=== PATIENT | male | born 1950 | race Caucasian/White ===

== ENCOUNTER 2023-07-31 08:51 | Inpatient (IN) | payer OTHER ==
[~2023-07-31] VITALS: Ht 157.5 cm; Wt 72.6 kg
[2023-07-31 09:04] VITALS: BP_SYST 137; PULSE 81; RESP 22; TEMP 98.3; O2SAT 98
[2023-07-31 09:39] LABS: BASOPHILS % (AUTO) 0.3 % (0.0-2.0); EOSINOPHILS % (AUTO) 0.3 % (0.0-4.0); HEMATOCRIT 37.3 % (36-54); HEMOGLOBIN 11.9 g/dL (14.0-18.0); LYMPHOCYTES # (AUTO) 3.6 K/uL (1.0-5.5); MEAN CORPUSCULAR HEMOGLOBIN 28 pg (27-31); MEAN CORPUSCULAR HGB CONC 32 % (32-36); MEAN CORPUSCULAR VOLUME 86 fL (79.0-98.0); MONOCYTES # (AUTO) 0.7 K/uL (0.0-1.0); MONOCYTES % (AUTO) 5.8 % (1.7-9.3); NEUTROPHILS # (AUTO) 8.1 K/uL (1.8-7.7); NEUTROPHILS % (AUTO) 64.6 % (40.0-70.0); PLATELET COUNT (AUTO) 233 K/uL (130-430); RED BLOOD CELL COUNT(AUTO) 4.34 MIL/uL (4.2-6.2); RED CELL DISTRIBUTION WIDTH 14.9 % (9.0-15.0); WHITE BLOOD COUNT (AUTO) 12.5 K/uL (4.8-10.8)
[2023-07-31 10:12] LABS: BILIRUBIN,URINE 1+ (NEGATIVE); BLOOD, URINE 3+ (NEGATIVE); CLARITY/URINE CLOUDY (CLEAR); COLOR,URINE YELLOW (YELLOW); GLUCOSE,URINE 1+ (NEGATIVE); KETONES,URINE TRACE (NEGATIVE); LEUKOCYTE ESTERASE ,URINE 1+ (NEGATIVE); NITRITE, URINE NEGATIVE (NEGATIVE); PROTEIN URINE 3+ (NEGATIVE)
[2023-07-31 10:27] LABS: ANION GAP 6 (5-15); CALCIUM 9.4 mg/dL (8.4-11.0); CARBON DIOXIDE 36 mmol/L (23-29); CHLORIDE 96 mmol/L (98-107); CREATININE 2.38 mg/dL (0.55-1.30); GLUCOSE 308 mg/dL (74-106); POTASSIUM 3.9 mmol/L (3.5-5.1); SODIUM SERUM 138 mmol/L (136-145); UREA NITROGEN, BLOOD 45 mg/dL (8-21)
[2023-07-31 10:45] LABS: BACTERIA,URINE MANY /HPF (None Seen); HYALINE CASTS, URINE 0-10 /LPF (None Seen); RBC,URINE 20-50 /HPF (0-3); WBC,URINE 20-50 /HPF (0-3)
[2023-07-31 10:46] LABS: ALANINE AMINOTRANSFERASE 26 U/L (12-78); ALBUMIN 3.4 g/dL (3.4-4.8); ASPARTATE AMINOTRANSFERASE 11 U/L (10-37); BILIRUBIN,DIRECT 0.2 mg/dL (0.0-0.3); LIPASE 18 U/L (16-77); TOTAL PROTEIN, SERUM 8.1 g/dL (6.4-8.3)
[2023-07-31] MEDS ORDERED: ASPIRIN 325 MG TABLET PO ONE (11:30)
[2023-07-31] MEDS ORDERED: HEPARIN SODIUM,PORCINE 5,000 UNITS/ML VIAL IVP ONE (11:45)
[2023-07-31] MEDS ORDERED: METO50TA16 PO (11:51)
[2023-07-31] MEDS ORDERED: TAMS0.4C96 PO (11:51)
[2023-07-31] MEDS ORDERED: METF-379 PO (11:51)
[2023-07-31] MEDS ORDERED: AMLO10TA88 PO (11:51)
[2023-07-31 11:59] LABS: INR 1.1 (0.80-1.20); PROTHROMBIN TIME 10.9 SECS (9.5-12.5)
[2023-07-31] MEDS ORDERED: NACL 0.9% 1,000 ML IV ONE (12:00)
[2023-07-31] MEDS ORDERED: *HEPARIN PER PHARMACY XX PRN (13:00)
[2023-07-31] MEDS ORDERED: 0.45% NACL 1,000 ML IV ONE (13:00)
[2023-07-31] MEDS ORDERED: cefTRIAXone 1 GM VIAL IM ONE (13:00)
[2023-07-31] MEDS ORDERED: HEPARIN SODIUM,PORCINE 2000 UNITS/0.4 ML BOLUS IVP PRN (14:45)
[2023-07-31] MEDS ORDERED: HEPARIN SODIUM,PORCINE 3000 UNITS/0.6 ML BOLUS IVP PRN (14:45)
[2023-07-31] MEDS ORDERED: CEFTRIAXONE SOD 1 GM/ D5W 50 ML IV ONE ×2 (15:00)
[2023-07-31] MEDS ORDERED: cefTRIAXone 1 GM VIAL ONE (16:23)
[2023-07-31] MEDS ORDERED: ONDANSETRON HCL 4 MG/2 ML VIAL IVP PRN (21:30)
[2023-07-31] MEDS ORDERED: DEXTROSE 50% JECT 50 ML DISP.SYRIN IVP PRN (21:30)
[2023-07-31] MEDS ORDERED: ACETAMINOPHEN 325 MG TABLET PO PRN (21:30)
[2023-07-31] MEDS ORDERED: 0.45% NS 500 ML IV ONE (21:45)
[2023-07-31 22:41] VITALS: BP_SYST 165; PULSE 52; RESP 16; TEMP 99.2; O2SAT 97
[2023-08-01] VITALS: BP_SYST 165; PULSE 88; RESP 16; TEMP 99; O2SAT 97
[2023-08-01] MEDS ORDERED: PIPERACILLIN/TAZOBACTAM 2.25 GM VIAL IV ONE (00:05)
[2023-08-01] MEDS ORDERED: amLODIPine BESYLATE 5 MG TABLET PO ONE (00:30)
[2023-08-01] MEDS: PIPERACILLIN/TAZO 2.25G/DEX-IS 50 ML IV SCH ×4 (00:32→17:14)
[2023-08-01] MEDS: hydrALAZINE HCL 20 MG/ML VIAL IVP PRN (00:47)
[2023-08-01] MEDS: HEPARIN 25,000 UNITS in 250 ML PREMIX IV PRN ×2 (01:11→09:51)
[2023-08-01 04:08] LABS: BARBITURATE, URINE NEGATIVE (NEG <=200); URINE AMPHETAMINE NEGATIVE (NEG <=500)
[2023-08-01 04:09] LABS: BENZODIAZEPINE, URINE NEGATIVE (NEG <=150); CANNABINOID, URINE NEGATIVE (NEG <=50); COCAINE, URINE NEGATIVE (NEG <=150); METHAMPHETAMINES SCREEN,URINE NEGATIVE (NEG <=500); OPIATE, URINE NEGATIVE (NEG <=100); PHENCYCLIDINE SCREEN,URINE NEGATIVE (NEG <=25); URINE METHADONE NEGATIVE (NEG <=200); URINE OXYCODONE SCREEN NEGATIVE (NEG <=100)
[2023-08-01 04:10] LABS: UR TRICYCLIC ANTIDEPRESSANTS NEGATIVE (NEG <=300)
[2023-08-01 04:15] LABS: BASOPHILS # (AUTO) 0.1 K/uL (0.0-0.2); BASOPHILS % (AUTO) 0.8 % (0.0-2.0); EOSINOPHILS % (AUTO) 9.3 % (0.0-4.0); HEMOGLOBIN 10.6 g/dL (14.0-18.0); LYMPHOCYTES # (AUTO) 5.6 K/uL (1.0-5.5); LYMPHOCYTES % (AUTO) 49.9 % (20.5-51.5); MEAN CORPUSCULAR HEMOGLOBIN 27 pg (27-31); MEAN CORPUSCULAR HGB CONC 31 % (32-36); MEAN CORPUSCULAR VOLUME 85 fL (79.0-98.0); MONOCYTES # (AUTO) 0.4 K/uL (0.0-1.0); MONOCYTES % (AUTO) 3.9 % (1.7-9.3); NEUTROPHILS % (AUTO) 36.1 % (40.0-70.0); PLATELET COUNT (AUTO) 182 K/uL (130-430); RED BLOOD CELL COUNT(AUTO) 3.99 MIL/uL (4.2-6.2); RED CELL DISTRIBUTION WIDTH 14.9 % (9.0-15.0); WHITE BLOOD COUNT (AUTO) 11.2 K/uL (4.8-10.8)
[2023-08-01 05:08] LABS: ALANINE AMINOTRANSFERASE 20 U/L (12-78); ALBUMIN 2.7 g/dL (3.4-4.8); ANION GAP 3 (5-15); ASPARTATE AMINOTRANSFERASE 13 U/L (10-37); CALCIUM 8.4 mg/dL (8.4-11.0); CARBON DIOXIDE 32 mmol/L (23-29); CHLORIDE 99 mmol/L (98-107); CREATININE 1.58 mg/dL (0.55-1.30); GLUCOSE 203 mg/dL (74-106); POTASSIUM 3.7 mmol/L (3.5-5.1); SODIUM SERUM 134 mmol/L (136-145); TOTAL PROTEIN, SERUM 6.7 g/dL (6.4-8.3); UREA NITROGEN, BLOOD 39 mg/dL (8-21)
[2023-08-01 08:00] VITALS: BP_SYST 122; PULSE 91; RESP 20; TEMP 97.8; O2SAT 98
[2023-08-01] MEDS ORDERED: ASPIRIN 81 MG TABLET(ECOTRIN) PO SCH (09:00)
[2023-08-01 09:27] LABS: CHOLESTEROL 180 mg/dL (<200); HDL CHOLESTEROL 60 mg/dL (>45); TRIGLYCERIDES 70 mg/dL (30-150)
[2023-08-01] MEDS: ASPIRIN 81 MG TABLET(ECOTRIN) PO SCH (09:38)
[2023-08-01] MEDS: ATORVASTATIN 20 MG TABLET PO SCH (09:39)
[2023-08-01] MEDS: amLODIPine BESYLATE 5 MG TABLET PO SCH (09:39)
[2023-08-01] MEDS ORDERED: MULTIVITS,CA,MINERALS/IRON/FA 1 TABLET PO ONE (11:30)
[2023-08-01] MEDS: INSULIN REGULAR, HUMAN 100 UNITS/ML, 3 ML VIAL (humuLIN R) SUBCUT PRN ×3 (11:38→21:26)
[2023-08-01 12:06] VITALS: BP_SYST 133; PULSE 89; RESP 18; TEMP 98.2; O2SAT 98
[2023-08-01 16:30] VITALS: BP_SYST 128; PULSE 90; RESP 19; TEMP 98; O2SAT 97
[2023-08-01 20:00] VITALS: BP_SYST 137; PULSE 56; RESP 18; TEMP 97.9; O2SAT 99
[2023-08-02] VITALS (7 sets, daily range): BP systolic 125–142; PULSE 57–72; RESP 17–20; TEMP 98–98.3; O2SAT 98–100
[2023-08-02] MEDS: PIPERACILLIN/TAZO 2.25G/DEX-IS 50 ML IV SCH ×5 (00:04→23:31)
[2023-08-02] MEDS: HEPARIN 25,000 UNITS in 250 ML PREMIX IV PRN (05:39)
[2023-08-02 07:02] LABS: BASOPHILS % (AUTO) 0.2 % (0.0-2.0); EOSINOPHILS # (AUTO) 0.9 K/uL (0.0-0.4); EOSINOPHILS % (AUTO) 9.6 % (0.0-4.0); HEMATOCRIT 29.6 % (36-54); HEMOGLOBIN 9.5 g/dL (14.0-18.0); LYMPHOCYTES % (AUTO) 55.8 % (20.5-51.5); MEAN CORPUSCULAR HEMOGLOBIN 28 pg (27-31); MEAN CORPUSCULAR HGB CONC 32 % (32-36); MEAN CORPUSCULAR VOLUME 86 fL (79.0-98.0); MONOCYTES # (AUTO) 0.4 K/uL (0.0-1.0); MONOCYTES % (AUTO) 4.5 % (1.7-9.3); NEUTROPHILS # (AUTO) 2.7 K/uL (1.8-7.7); NEUTROPHILS % (AUTO) 29.9 % (40.0-70.0); PLATELET COUNT (AUTO) 160 K/uL (130-430); RED BLOOD CELL COUNT(AUTO) 3.46 MIL/uL (4.2-6.2); RED CELL DISTRIBUTION WIDTH 14.8 % (9.0-15.0); WHITE BLOOD COUNT (AUTO) 8.9 K/uL (4.8-10.8)
[2023-08-02 07:13] LABS: ALANINE AMINOTRANSFERASE 17 U/L (12-78); ALBUMIN 2.3 g/dL (3.4-4.8); ANION GAP 5 (5-15); ASPARTATE AMINOTRANSFERASE 12 U/L (10-37); CALCIUM 7.8 mg/dL (8.4-11.0); CARBON DIOXIDE 30 mmol/L (23-29); CHLORIDE 100 mmol/L (98-107); CREATININE 1.27 mg/dL (0.55-1.30); GLUCOSE 187 mg/dL (74-106); POTASSIUM 3.6 mmol/L (3.5-5.1); SODIUM SERUM 135 mmol/L (136-145); TOTAL BILIRUBIN 0.8 mg/dL (0.0-1.0); TOTAL PROTEIN, SERUM 5.9 g/dL (6.4-8.3); UREA NITROGEN, BLOOD 30 mg/dL (8-21)
[2023-08-02] MEDS: ASPIRIN 81 MG TABLET(ECOTRIN) PO SCH (09:49)
[2023-08-02] MEDS: ATORVASTATIN 20 MG TABLET PO SCH (09:49)
[2023-08-02] MEDS: MULTIVITS,CA,MINERALS/IRON/FA 1 TABLET PO SCH (09:51)
[2023-08-02 11:40] LABS: TOTAL IRON BIND. CAPACITY 153 ug/dL (250-450)
[2023-08-02] MEDS: amLODIPine BESYLATE 5 MG TABLET PO SCH (15:11)
[2023-08-02] MEDS: INSULIN REGULAR, HUMAN 100 UNITS/ML, 3 ML VIAL (humuLIN R) SUBCUT PRN (20:58)
[2023-08-03 00:41] VITALS: BP_SYST 144; PULSE 70; RESP 18; TEMP 98; O2SAT 100
[2023-08-03] MEDS ORDERED: cefTRIAXone 1 GM VIAL ONE (02:49)
[2023-08-03] MEDS: cefTRIAXone 1 GM in D5W 50 ML IV SCH (02:56)
[2023-08-03 04:51] LABS: HEMATOCRIT 26.1 % (36-54); HEMOGLOBIN 8.3 g/dL (14.0-18.0); MEAN CORPUSCULAR HEMOGLOBIN 27 pg (27-31); MEAN CORPUSCULAR HGB CONC 32 % (32-36); MEAN CORPUSCULAR VOLUME 86 fL (79.0-98.0); PLATELET COUNT (AUTO) 159 K/uL (130-430); RED BLOOD CELL COUNT(AUTO) 3.05 MIL/uL (4.2-6.2); RED CELL DISTRIBUTION WIDTH 14.8 % (9.0-15.0); WHITE BLOOD COUNT (AUTO) 9.9 K/uL (4.8-10.8)
[2023-08-03 05:03] LABS: ALANINE AMINOTRANSFERASE 19 U/L (12-78); ALBUMIN 2.3 g/dL (3.4-4.8); ANION GAP 5 (5-15); ASPARTATE AMINOTRANSFERASE 16 U/L (10-37); CALCIUM 7.7 mg/dL (8.4-11.0); CARBON DIOXIDE 28 mmol/L (23-29); CHLORIDE 99 mmol/L (98-107); CREATININE 1.21 mg/dL (0.55-1.30); GLUCOSE 92 mg/dL (74-106); POTASSIUM 3.7 mmol/L (3.5-5.1); SODIUM SERUM 132 mmol/L (136-145); TOTAL BILIRUBIN 0.4 mg/dL (0.0-1.0); TOTAL PROTEIN, SERUM 5.9 g/dL (6.4-8.3); UREA NITROGEN, BLOOD 40 mg/dL (8-21)
[2023-08-03] MEDS: HEPARIN 25,000 UNITS in 250 ML PREMIX IV PRN (05:46)
[2023-08-03 07:19] LABS: ATYPICAL LYMPHOCYTES % 8 % (0-0); BASOPHILS % (MANUAL) 0 % (0-2); EOSINOPHILS % (MANUAL) 4 % (0-7); LYMPHOCYTES % (MANUAL) 50 % (20-46); MONOCYTES % (MANUAL) 6 % (0-11); SMUDGE CELLS FEW
[2023-08-03 07:20] LABS: PLATELET ESTIMATE ADEQUATE (ADEQUATE)
[2023-08-03 08:00] VITALS: O2SAT 98
[2023-08-03] MEDS: ATORVASTATIN 20 MG TABLET PO SCH (09:54)
[2023-08-03] MEDS: amLODIPine BESYLATE 5 MG TABLET PO SCH (09:57)
[2023-08-03] MEDS: MULTIVITS,CA,MINERALS/IRON/FA 1 TABLET PO SCH (09:58)
[2023-08-03] MEDS: ASPIRIN 81 MG TABLET(ECOTRIN) PO SCH (09:58)
[2023-08-03 13:10] VITALS: BP_SYST 116; PULSE 79; RESP 16; TEMP 99.5; O2SAT 98
[2023-08-03 16:00] VITALS: BP_SYST 131; PULSE 89; RESP 18; TEMP 98.6; O2SAT 100
[2023-08-03] MEDS: INSULIN REGULAR, HUMAN 100 UNITS/ML, 3 ML VIAL (humuLIN R) SUBCUT PRN ×2 (17:47→21:31)
[2023-08-03] MEDS ORDERED: METOCLOPRAMIDE HCL 10 MG/2 ML VIAL IVP PRN (19:30)
[2023-08-03] MEDS ORDERED: PANTOPRAZOLE SODIUM 80 MG in NS 100 ML IVP ONE (20:00)
[2023-08-03 20:30] VITALS: BP_SYST 128; PULSE 97; RESP 20; TEMP 98.3; O2SAT 97
[2023-08-03 20:35] LABS: BASOPHILS % (AUTO) 0.3 % (0.0-2.0); EOSINOPHILS # (AUTO) 0.4 K/uL (0.0-0.4); EOSINOPHILS % (AUTO) 3.1 % (0.0-4.0); HEMATOCRIT 23.8 % (36-54); LYMPHOCYTES # (AUTO) 4.1 K/uL (1.0-5.5); LYMPHOCYTES % (AUTO) 34.8 % (20.5-51.5); MEAN CORPUSCULAR HEMOGLOBIN 27 pg (27-31); MEAN CORPUSCULAR HGB CONC 32 % (32-36); MEAN CORPUSCULAR VOLUME 86 fL (79.0-98.0); MONOCYTES # (AUTO) 0.5 K/uL (0.0-1.0); MONOCYTES % (AUTO) 4.2 % (1.7-9.3); NEUTROPHILS # (AUTO) 6.7 K/uL (1.8-7.7); NEUTROPHILS % (AUTO) 57.6 % (40.0-70.0); PLATELET COUNT (AUTO) 138 K/uL (130-430); RED BLOOD CELL COUNT(AUTO) 2.78 MIL/uL (4.2-6.2); RED CELL DISTRIBUTION WIDTH 14.7 % (9.0-15.0); WHITE BLOOD COUNT (AUTO) 11.7 K/uL (4.8-10.8)
[2023-08-03 20:41] LABS: HEMOGLOBIN 7.6 g/dL (14.0-18.0)
[2023-08-03 21:00] VITALS: O2SAT 97
[2023-08-03] MEDS: PANTOPRAZOLE SODIUM 40 MG in NS 50 ML IV SCH (21:34)
[2023-08-04] MEDS: cefTRIAXone 1 GM in D5W 50 ML IV SCH ×2 (00:09→23:35)
[2023-08-04 00:27] VITALS: BP_SYST 110; PULSE 88; RESP 20; TEMP 99.4; O2SAT 96
[2023-08-04] MEDS: PANTOPRAZOLE SODIUM 40 MG in NS 50 ML IV SCH ×5 (01:42→21:14)
[2023-08-04 06:44] LABS: ALANINE AMINOTRANSFERASE 20 U/L (12-78); ALBUMIN 2.6 g/dL (3.4-4.8); ANION GAP 7 (5-15); ASPARTATE AMINOTRANSFERASE 12 U/L (10-37); CALCIUM 8.3 mg/dL (8.4-11.0); CARBON DIOXIDE 30 mmol/L (23-29); CHLORIDE 98 mmol/L (98-107); CREATININE 1.55 mg/dL (0.55-1.30); GLUCOSE 261 mg/dL (74-106); POTASSIUM 3.5 mmol/L (3.5-5.1); SODIUM SERUM 135 mmol/L (136-145); TOTAL BILIRUBIN 0.4 mg/dL (0.0-1.0); UREA NITROGEN, BLOOD 56 mg/dL (8-21)
[2023-08-04] MEDS: INSULIN REGULAR, HUMAN 100 UNITS/ML, 3 ML VIAL (humuLIN R) SUBCUT PRN ×3 (07:06→17:31)
[2023-08-04 07:37] LABS: BASOPHILS % (AUTO) 0.2 % (0.0-2.0); EOSINOPHILS # (AUTO) 0.1 K/uL (0.0-0.4); EOSINOPHILS % (AUTO) 0.8 % (0.0-4.0); LYMPHOCYTES # (AUTO) 4.3 K/uL (1.0-5.5); LYMPHOCYTES % (AUTO) 31.7 % (20.5-51.5); MEAN CORPUSCULAR HEMOGLOBIN 27 pg (27-31); MEAN CORPUSCULAR HGB CONC 31 % (32-36); MEAN CORPUSCULAR VOLUME 86 fL (79.0-98.0); MONOCYTES # (AUTO) 0.5 K/uL (0.0-1.0); MONOCYTES % (AUTO) 3.7 % (1.7-9.3); NEUTROPHILS # (AUTO) 8.5 K/uL (1.8-7.7); NEUTROPHILS % (AUTO) 63.6 % (40.0-70.0); PLATELET COUNT (AUTO) 154 K/uL (130-430); RED BLOOD CELL COUNT(AUTO) 2.26 MIL/uL (4.2-6.2); WHITE BLOOD COUNT (AUTO) 13.4 K/uL (4.8-10.8)
[2023-08-04 08:00] VITALS: BP_SYST 163; PULSE 86; RESP 16; TEMP 97.8; O2SAT 97
[2023-08-04 08:04] LABS: HEMATOCRIT 19.3 % (36-54); HEMOGLOBIN 6.1 g/dL (14.0-18.0)
[2023-08-04] MEDS: amLODIPine BESYLATE 5 MG TABLET PO SCH (08:48)
[2023-08-04] MEDS: ATORVASTATIN 20 MG TABLET PO SCH (08:49)
[2023-08-04] MEDS: MULTIVITS,CA,MINERALS/IRON/FA 1 TABLET PO SCH (09:00)
[2023-08-04 11:44] VITALS: BP_SYST 109; PULSE 106; RESP 19; TEMP 98; O2SAT 98
[2023-08-04 17:04] VITALS: BP_SYST 121; PULSE 86; RESP 18; TEMP 98.4; O2SAT 95
[2023-08-04 19:40] VITALS: BP_SYST 152; PULSE 71; RESP 18; TEMP 98.8; O2SAT 96; O2SAT 98
[2023-08-04] MEDS ORDERED: METOCLOPRAMIDE HCL 10 MG/2 ML VIAL IVP ONE (19:45)
[2023-08-04 23:30] VITALS: BP_SYST 153; PULSE 76; RESP 18; TEMP 98.5; O2SAT 96
[2023-08-04] MEDS: hydrALAZINE HCL 20 MG/ML VIAL IVP PRN (23:34)
[2023-08-04 23:40] LABS: PROTHROMBIN TIME 10.6 SECS (9.5-12.5)
[2023-08-04 23:54] LABS: BASOPHILS # (AUTO) 0.1 K/uL (0.0-0.2); BASOPHILS % (AUTO) 0.3 % (0.0-2.0); EOSINOPHILS # (AUTO) 0.3 K/uL (0.0-0.4); EOSINOPHILS % (AUTO) 1.4 % (0.0-4.0); HEMATOCRIT 28.2 % (36-54); HEMOGLOBIN 9.1 g/dL (14.0-18.0); LYMPHOCYTES % (AUTO) 23.6 % (20.5-51.5); MEAN CORPUSCULAR HEMOGLOBIN 28 pg (27-31); MEAN CORPUSCULAR HGB CONC 32 % (32-36); MEAN CORPUSCULAR VOLUME 87 fL (79.0-98.0); MONOCYTES # (AUTO) 1.1 K/uL (0.0-1.0); MONOCYTES % (AUTO) 5.1 % (1.7-9.3); NEUTROPHILS # (AUTO) 14.6 K/uL (1.8-7.7); NEUTROPHILS % (AUTO) 69.6 % (40.0-70.0); PLATELET COUNT (AUTO) 111 K/uL (130-430); RED BLOOD CELL COUNT(AUTO) 3.24 MIL/uL (4.2-6.2); RED CELL DISTRIBUTION WIDTH 14.4 % (9.0-15.0)
[2023-08-05] VITALS: BP_SYST 153; PULSE 76; RESP 18; TEMP 98.5; O2SAT 96
[2023-08-05] MEDS: PANTOPRAZOLE SODIUM 40 MG in NS 50 ML IV SCH ×4 (04:07→18:11)
[2023-08-05 05:09] LABS: BASOPHILS % (AUTO) 0.1 % (0.0-2.0); EOSINOPHILS # (AUTO) 0.6 K/uL (0.0-0.4); EOSINOPHILS % (AUTO) 2.4 % (0.0-4.0); HEMATOCRIT 27.9 % (36-54); HEMOGLOBIN 9.1 g/dL (14.0-18.0); LYMPHOCYTES # (AUTO) 5.9 K/uL (1.0-5.5); LYMPHOCYTES % (AUTO) 25.7 % (20.5-51.5); MEAN CORPUSCULAR HEMOGLOBIN 28 pg (27-31); MEAN CORPUSCULAR HGB CONC 33 % (32-36); MEAN CORPUSCULAR VOLUME 87 fL (79.0-98.0); MONOCYTES % (AUTO) 4.4 % (1.7-9.3); NEUTROPHILS # (AUTO) 15.5 K/uL (1.8-7.7); NEUTROPHILS % (AUTO) 67.4 % (40.0-70.0); PLATELET COUNT (AUTO) 112 K/uL (130-430); RED CELL DISTRIBUTION WIDTH 14.7 % (9.0-15.0)
[2023-08-05 05:55] LABS: TOTAL IRON BIND. CAPACITY 197 ug/dL (250-450)
[2023-08-05 05:58] LABS: ALANINE AMINOTRANSFERASE 22 U/L (12-78); ALBUMIN 2.6 g/dL (3.4-4.8); ANION GAP 9 (5-15); ASPARTATE AMINOTRANSFERASE 16 U/L (10-37); CALCIUM 8.6 mg/dL (8.4-11.0); CARBON DIOXIDE 31 mmol/L (23-29); CHLORIDE 102 mmol/L (98-107); CREATININE 1.67 mg/dL (0.55-1.30); GLUCOSE 291 mg/dL (74-106); POTASSIUM 3.7 mmol/L (3.5-5.1); SODIUM SERUM 142 mmol/L (136-145); TOTAL BILIRUBIN 0.6 mg/dL (0.0-1.0); TOTAL PROTEIN, SERUM 5.8 g/dL (6.4-8.3); UREA NITROGEN, BLOOD 51 mg/dL (8-21)
[2023-08-05 08:00] VITALS: BP_SYST 148; PULSE 76; RESP 18; TEMP 98.3
[2023-08-05] MEDS ORDERED: MIDAZOLAM HCL 5 MG/5 ML VIAL ONE (08:08)
[2023-08-05] MEDS ORDERED: MEPERIDINE 100 MG INJ. 100 MG/ML VIAL ONE (08:08)
[2023-08-05] MEDS ORDERED: fentaNYL CITRATE/PF 100 MCG/2 ML AMP ONE (08:09)
[2023-08-05] MEDS: ATORVASTATIN 20 MG TABLET PO SCH (09:00)
[2023-08-05] MEDS: MULTIVITS,CA,MINERALS/IRON/FA 1 TABLET PO SCH (09:00)
[2023-08-05] MEDS: amLODIPine BESYLATE 5 MG TABLET PO SCH (09:00)
[2023-08-05] MEDS: INSULIN REGULAR, HUMAN 100 UNITS/ML, 3 ML VIAL (humuLIN R) SUBCUT PRN ×3 (12:29→21:50)
[2023-08-05 15:27] VITALS: BP_SYST 159; PULSE 79; RESP 18; TEMP 98; O2SAT 98
[2023-08-05] MEDS ORDERED: cloNIDine HCL 0.1 MG TABLET PO PRN (18:15)
[2023-08-05 19:00] VITALS: BP_SYST 152; PULSE 76; RESP 16; TEMP 98.2; O2SAT 98
[2023-08-05 20:00] VITALS: BP_SYST 152; PULSE 76; RESP 16; TEMP 98.2; O2SAT 98
[2023-08-05] MEDS: PANTOPRAZOLE SODIUM 40 MG TAB PO SCH (21:41)
[2023-08-06] VITALS: BP_SYST 148; PULSE 72; RESP 16; TEMP 98; O2SAT 98
[2023-08-06] MEDS: cefTRIAXone 1 GM in D5W 50 ML IV SCH ×2 (00:26→20:21)
[2023-08-06 05:18] LABS: BASOPHILS % (AUTO) 0.1 % (0.0-2.0); EOSINOPHILS # (AUTO) 0.7 K/uL (0.0-0.4); EOSINOPHILS % (AUTO) 3.7 % (0.0-4.0); HEMATOCRIT 23.5 % (36-54); HEMOGLOBIN 7.4 g/dL (14.0-18.0); LYMPHOCYTES % (AUTO) 27.6 % (20.5-51.5); MEAN CORPUSCULAR HEMOGLOBIN 28 pg (27-31); MEAN CORPUSCULAR HGB CONC 32 % (32-36); MEAN CORPUSCULAR VOLUME 88 fL (79.0-98.0); MONOCYTES # (AUTO) 0.9 K/uL (0.0-1.0); MONOCYTES % (AUTO) 4.7 % (1.7-9.3); NEUTROPHILS # (AUTO) 11.6 K/uL (1.8-7.7); NEUTROPHILS % (AUTO) 63.9 % (40.0-70.0); PLATELET COUNT (AUTO) 125 K/uL (130-430); RED BLOOD CELL COUNT(AUTO) 2.66 MIL/uL (4.2-6.2); RED CELL DISTRIBUTION WIDTH 14.9 % (9.0-15.0); WHITE BLOOD COUNT (AUTO) 18.2 K/uL (4.8-10.8)
[2023-08-06 08:00] VITALS: O2SAT 99
[2023-08-06 08:17] LABS: FOLATE (FOLIC ACID) 9.8 ng/mL (>3.0)
[2023-08-06 08:32] VITALS: BP_SYST 106; PULSE 70; RESP 18; TEMP 98; O2SAT 96
[2023-08-06] MEDS: ATORVASTATIN 20 MG TABLET PO SCH (09:26)
[2023-08-06] MEDS: MULTIVITS,CA,MINERALS/IRON/FA 1 TABLET PO SCH (09:26)
[2023-08-06] MEDS: PANTOPRAZOLE SODIUM 40 MG TAB PO SCH ×2 (09:26→20:21)
[2023-08-06] MEDS: amLODIPine BESYLATE 5 MG TABLET PO SCH (09:27)
[2023-08-06 11:08] VITALS: BP_SYST 122; PULSE 72; RESP 16; TEMP 98.9; O2SAT 99
[2023-08-06 15:21] VITALS: BP_SYST 132; PULSE 79; RESP 15; TEMP 97.7; O2SAT 96
[2023-08-06] MEDS ORDERED: BISACODYL 5 MG TABLET.DR (DULCOLAX) PO ONE (17:00)
[2023-08-06] MEDS: INSULIN REGULAR, HUMAN 100 UNITS/ML, 3 ML VIAL (humuLIN R) SUBCUT PRN ×2 (17:52→20:24)
[2023-08-06] MEDS ORDERED: GOLYTELY / COLYTE SOLUTION 4 LITERS PO ONE (18:00)
[2023-08-06 20:00] VITALS: BP_SYST 141; PULSE 54; RESP 16; TEMP 99.1; O2SAT 97
[2023-08-07 05:11] LABS: BASOPHILS % (AUTO) 0.3 % (0.0-2.0); EOSINOPHILS % (AUTO) 6.2 % (0.0-4.0); HEMOGLOBIN 8.1 g/dL (14.0-18.0); LYMPHOCYTES # (AUTO) 5.7 K/uL (1.0-5.5); LYMPHOCYTES % (AUTO) 37.3 % (20.5-51.5); MEAN CORPUSCULAR HEMOGLOBIN 29 pg (27-31); MEAN CORPUSCULAR HGB CONC 33 % (32-36); MEAN CORPUSCULAR VOLUME 88 fL (79.0-98.0); MONOCYTES # (AUTO) 0.7 K/uL (0.0-1.0); MONOCYTES % (AUTO) 4.5 % (1.7-9.3); NEUTROPHILS % (AUTO) 51.7 % (40.0-70.0); PLATELET COUNT (AUTO) 161 K/uL (130-430); RED BLOOD CELL COUNT(AUTO) 2.84 MIL/uL (4.2-6.2); RED CELL DISTRIBUTION WIDTH 14.6 % (9.0-15.0); WHITE BLOOD COUNT (AUTO) 15.4 K/uL (4.8-10.8)
[2023-08-07 05:29] LABS: ALANINE AMINOTRANSFERASE 31 U/L (12-78); ALBUMIN 2.4 g/dL (3.4-4.8); ANION GAP 11 (5-15); ASPARTATE AMINOTRANSFERASE 17 U/L (10-37); CALCIUM 8.5 mg/dL (8.4-11.0); CARBON DIOXIDE 28 mmol/L (23-29); CHLORIDE 98 mmol/L (98-107); CREATININE 1.11 mg/dL (0.55-1.30); GLUCOSE 205 mg/dL (74-106); POTASSIUM 3.5 mmol/L (3.5-5.1); SODIUM SERUM 137 mmol/L (136-145); TOTAL BILIRUBIN 0.6 mg/dL (0.0-1.0); UREA NITROGEN, BLOOD 18 mg/dL (8-21)
[2023-08-07] MEDS ORDERED: fentaNYL CITRATE/PF 100 MCG/2 ML AMP ONE (06:24)
[2023-08-07] MEDS ORDERED: MIDAZOLAM HCL 5 MG/5 ML VIAL ONE (06:25)
[2023-08-07 07:50] VITALS: BP_SYST 154; PULSE 59; RESP 16; TEMP 98.9; O2SAT 95
[2023-08-07] MEDS: cefTRIAXone 1 GM in D5W 50 ML IV SCH ×2 (08:00→20:42)
[2023-08-07] MEDS: ATORVASTATIN 20 MG TABLET PO SCH (11:21)
[2023-08-07] MEDS: amLODIPine BESYLATE 5 MG TABLET PO SCH (11:21)
[2023-08-07] MEDS: PANTOPRAZOLE SODIUM 40 MG TAB PO SCH (11:21)
[2023-08-07] MEDS: MULTIVITS,CA,MINERALS/IRON/FA 1 TABLET PO SCH (11:28)
[2023-08-07 12:15] VITALS: BP_SYST 137; PULSE 67; RESP 17; TEMP 98.9; O2SAT 95
[2023-08-07] MEDS ORDERED: FLUCONAZOLE 100 mg/ NS 50 ML IV SCH (14:00)
[2023-08-07] MEDS ORDERED: FLUCONAZOLE 200 mg/ NS 100 ML IV SCH (16:00)
[2023-08-07 18:16] VITALS: O2SAT 95
[2023-08-07 18:56] VITALS: BP_SYST 137; PULSE 67; RESP 17; TEMP 98.9; O2SAT 95
[2023-08-07 20:35] VITALS: BP_SYST 139; PULSE 86; RESP 18; TEMP 99; O2SAT 96
[2023-08-07] MEDS ORDERED: ROCI2 IVPB (20:39)
[2023-08-07] MEDS ORDERED: LIP20 PO (20:39)
[2023-08-07] MEDS ORDERED: MULT-1145 PO (20:40)
[2023-08-07] MEDS ORDERED: PRO40 PO (20:40)
[2023-08-07] MEDS ORDERED: TAMS-11 PO (20:44)
[2023-08-07] MEDS: INSULIN REGULAR, HUMAN 100 UNITS/ML, 3 ML VIAL (humuLIN R) SUBCUT PRN (21:18)
== END 2023-08-07 22:37 | DRG 871 ==
LOC: SED 08:51 → STU 12:53
PROVIDERS: ADMIT Internal Medicine; ATTEND Internal Medicine
PROC: 30233N1 Transfusion of Nonautologous Red Blood Cells into Peripheral Vein, Percutaneous Approach (ICD-10-PCS; 2023-08-04)
PROC: 0DB78ZX Excision of Stomach, Pylorus, Via Natural or Artificial Opening Endoscopic, Diagnostic (ICD-10-PCS; principal; 2023-08-05 11:00)
PROC: 0W3P8ZZ Control Bleeding in Gastrointestinal Tract, Via Natural or Artificial Opening Endoscopic (ICD-10-PCS; 2023-08-07)
PROC: 0DBE8ZX Excision of Large Intestine, Via Natural or Artificial Opening Endoscopic, Diagnostic (ICD-10-PCS; 2023-08-07 11:00)
PROC: 0DBK8ZZ Excision of Ascending Colon, Via Natural or Artificial Opening Endoscopic (ICD-10-PCS; 2023-08-07 11:00)
PROC: 0DBL8ZZ Excision of Transverse Colon, Via Natural or Artificial Opening Endoscopic (ICD-10-PCS; 2023-08-07 11:00)
DX: A41.9 Sepsis, unspecified organism (principal); G93.41 Metabolic encephalopathy; I21.A1 Myocardial infarction type 2; K29.71 Gastritis, unspecified, with bleeding; K57.91 Diverticulosis of intestine, part unspecified, without perforation or abscess with bleeding; N17.0 Acute kidney failure with tubular necrosis; N39.0 Urinary tract infection, site not specified; Z16.24 Resistance to multiple antibiotics; D62 Acute posthemorrhagic anemia; I10 Essential (primary) hypertension; N40.0 Benign prostatic hyperplasia without lower urinary tract symptoms; N13.9 Obstructive and reflux uropathy, unspecified; B96.20 Unspecified Escherichia coli [E. coli] as the cause of diseases classified elsewhere; D64.9 Anemia, unspecified; E11.9 Type 2 diabetes mellitus without complications
CPT/HCPCS: 36415; 70450-TC; 71045; 76376; 76770; 80048; 80053; 80061; 80076; 80307; 81000; 81001; 81015; 82272; 82607; 82728; 82746; 82962; 83540; 83550; 83690; 84443; 84484; 85007; 85025; 85027; 85044; 85610-TC; 85730-TC; 86886; 86900; 86901; 86920; 87086; 88305; 88312; 88313; 93005; 93306; 96361; 96365; 96375; 97110-GP; 97116-GP; 97530-GP; 99291; C9113; G0378; J0360; J0696; J1450; J1644; J1815; J2175; J2250; J2405; J2543; J2765; J3010; J7060; P9021